=== PATIENT | female | born 1995 | race Two or more races ===

== ENCOUNTER 2018-06-07 00:02 | Outpatient (CLI) | END 2018-06-07 03:54 | disposition home or self-care (01) ==

== ENCOUNTER 2018-07-12 20:50 | Inpatient (IN) | END 2018-07-14 18:00 | disposition home or self-care (01) | DRG 781 ==

== ENCOUNTER 2018-07-29 02:08 | Outpatient (CLI) | END 2018-07-29 05:40 | disposition home or self-care (01) ==

== ENCOUNTER 2018-08-13 03:15 | Inpatient (IN) | END 2018-08-16 14:45 | disposition home or self-care (01) | DRG 807 ==

== ENCOUNTER 2018-10-06 16:21 | Emergency (ER) | END 2018-10-06 18:30 | disposition home or self-care (01) ==